=== PATIENT | male | born 1980 ===

== ENCOUNTER 2016-06-09 12:43 | Emergency (ER) | payer OTHER ==
--- NOTE | 2016-06-09 13:13 | ED ---
Lower Extremity - HPI Summary HPI Summary: Patient felt a pop sensation and limited ability to walk on the L mid, medial calf while lifting weights. Denies foot/ankle pain, trauma. No allev factors. 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 - Female Friend Onset of Pain: Immediate Severity Initially: Mild Severity Currently: None Pain Intensity: 9 - Allergies/Home Medications Allergies/Adverse Reactions: Allergies Allergy/AdvReac Type Severity Reaction Status Date / Time No Known Allergies Allergy Verified 06/09/16 12:52 PMH/Surg Hx/FS Hx/Imm Hx Previously Healthy: Yes Infectious Disease History: No Infectious Disease History: Denies: Traveled Outside the [place] in Last 30 Days - Social History Alcohol Use: None Substance Use Type: Reports: None Smoking Status (MU): Never Smoked Tobacco Review of Systems All Other Systems Reviewed And Are Negative: Yes Physical Exam Triage Information Reviewed: Yes Vital Signs On Initial Exam: Initial Vitals Temp Pulse Resp BP Pulse Ox 98.5 F 83 20 133/78 99 06/09/16 12:44 06/09/16 12:44 06/09/16 12:44 06/09/16 12:44 06/09/16 12:44 Vital Signs Reviewed: Yes Appearance: Positive: Well-Appearing, No Pain Distress, Well-Nourished Skin: Positive: Warm Respiratory/Lung Sounds: Positive: Clear to Auscultation, Breath Sounds Present Cardiovascular: Positive: Normal, RRR, Pulses are Symmetrical in both Upper and Lower Extremities Abdomen Description: Positive: Nontender, No Organomegaly, Soft Musculoskeletal: Positive: Normal, Strength/ROM Intact Neurological: Positive: Normal, Sensory/Motor Intact, Alert, Oriented to Person Place, Time, CN Intact II-III, Reflexes Intact, NV Bundle Intact Distally, Abnormal Gait - Cecilia Coma Scale Coma Scale Total: 15 Diagnostics - Vital Signs Vital Signs Temp Pulse Resp BP Pulse Ox 06/09/16 12:44 98.5 F 83 20 133/78 99 - Laboratory Lab Statement: Any lab studies that have been ordered have been reviewed, and results considered in the medical decision making process. Lower Extremity Course/Dx - Diagnoses Differential Diagnosis/HQI/PQRI: Positive: Other - Primary concern for calf strain. No ultrasound evidence of achilles rupture. xray for occult fx. DC home with crutch for comfort. VIN Mendez qualifier. Provider Diagnoses: Strain of calf muscle Discharge - Discharge Plan Condition: Stable Disposition: HOME Patient Education Materials: Muscle Strain (ED)
--- NOTE | 2016-06-09 13:31 | RAD ---
INDICATION: Left leg injury COMPARISON: None TECHNIQUE: AP and lateral views were obtained. FINDINGS: The bony structures, joint spaces, and soft tissues are normal for age. IMPRESSION: NEGATIVE EXAMINATION
[2016-06-09 13:35] VITALS: BP 130/72
== END 2016-06-09 13:32 | disposition home or self-care (01) ==
LOC: ED 12:43
DX: S86.912A Strain of unspecified muscle(s) and tendon(s) at lower leg level, left leg, initial encounter (principal); X58.XXXA Exposure to other specified factors, initial encounter; Y93.9 Activity, unspecified; Y92.9 Unspecified place or not applicable
CPT/HCPCS: 99285

== ENCOUNTER 2017-06-12 17:51 | Inpatient (IN) | payer OTHER ==
--- NOTE | 2017-06-12 18:36 | ED ---
Psychiatric Complaint - HPI Summary HPI Summary: 36 male presents to ED with complaints of having increasing paranoia, suicidal thoughts, depression, and denis over the past few weeks. Patient has a history of denis and suicidal attempt (climbed the top of daisy, was going to jump off but didn't) and hospitalization 1 year ago for approximately 6 months. Has been following up with psychiatrist, Dr Ramirez at [facility] in [facility]. The past month has been taking and trying different medications , currently depakote and ambien without relief. Patient states he has had decreased appetite and insomnia for the past 4 months, worsening over the past few weeks. Had strong thoughts of suicide 3 days ago, when he was thinking to use knives and stab his heart however he didn't know where to put it. Went to his friends house, who is currently with him, and has been staying with her for the past 3 days. Patient states he has been having extravagant thoughts, paranoia and denis. States he is unable to get his brain under control. Very supportive family, per patient. Patient understands the extent of his illness and wants help before it is uncontrollable. No homicidal thoughts. Admits to hallucinating. No alcohol or drug use. Also spoke with patient's psychiatrist who is requesting admission as patient does not appear stable and he is worried for patient's well being, medications do not seem to be helping. Not currently suicidal at this time. No other PMHx. - History Of Current Complaint Chief Complaint: EDMentalHealth Time Seen by Provider: 06/12/17 18:17 Hx Obtained From: Patient, Family/C Unix Developer - friend Onset/Duration: Gradual Onset, Lasting Weeks, Still Present, Worse Since Timing: Constant Severity Initially: Moderate Severity Currently: Severe Character: Manic, Depressed Aggravating Factor(s): Recent Stress Alleviating Factor(s): Nothing Associated Signs And Symptoms: Positive: Hallucinating, Paranoid Behavior, Sleep Disturbance, Appetite Change Related History: Positive For: Prior Psychiatric Issues Has Suicidal: Reports: Thoughts, With A Plan, Has Prior Attempt(s) - almost attempt with walking to edge of daisy however returned Has Homicidal: Denies: Thoughts, With A Plan - Risk Factor(s) Completed Suicide Risk Factors: Male, White Estonian, Past Suicide Attempt - Allergies/Home Medications Allergies/Adverse Reactions: Allergies Allergy/AdvReac Type Severity Reaction Status Date / Time No Known Allergies Allergy Verified 06/09/16 12:52 Home Medications: Home Medications Divalproex ER TAB(*) [Depakote ER TAB(*)] 1,000 mg PO BEDTIME 06/12/17 [History Confirmed 06/12/17] Zolpidem TAB* [Ambien TAB*] 10 mg PO BEDTIME PRN 06/12/17 [History Confirmed ] PMH/Surg Hx/FS Hx/Imm Hx Endocrine/Hematology History: Denies: Hx Anticoagulant Therapy, Hx Diabetes Cardiovascular History: Denies: Hx Hypertension Respiratory History: Denies: Hx Asthma - Surgical History Surgery Procedure, Year, and Place: n/a - Immunization History Immunizations Up to Date: Yes Infectious Disease History: No Infectious Disease History: Denies: Traveled Outside the US in Last 30 Days - Family History Known Family History: Positive: None - Social History Alcohol Use: None Substance Use Type: Reports: None Smoking Status (MU): Never Smoked Tobacco Review of Systems Constitutional: Negative Cardiovascular: Negative Respiratory: Negative Neurological: Negative Positive: Depressed, Other - paranoid, manic, suicidal All Other Systems Reviewed And Are Negative: Yes Physical Exam Triage Information Reviewed: Yes Vital Signs On Initial Exam: Initial Vitals Temp Pulse Resp BP Pulse Ox 98.7 F 54 16 118/74 99 06/12/17 17:57 06/12/17 17:57 06/12/17 17:57 06/12/17 17:57 06/12/17 17:57 Vital Signs Reviewed: Yes Appearance: Positive: Well-Appearing - flat affect, No Pain Distress, Well- Nourished Skin: Positive: Warm, Skin Color Reflects Adequate Perfusion, Dry. Negative: Cold, Numb, Cyanosis @, Pale, Erythema @ Head/Face: Positive: Normal Head/Face Inspection Eyes: Positive: Conjunctiva Clear ENT: Positive: Pharynx normal Neck: Positive: Supple, Nontender Respiratory/Lung Sounds: Positive: Clear to Auscultation, Breath Sounds Present. Negative: Rales, Rhonchi, Wheezes Cardiovascular: Positive: Normal, RRR, Pulses are Symmetrical in both Upper and Lower Extremities. Negative: Murmur, Rub Abdomen Description: Positive: Nontender, Soft Bowel Sounds: Positive: Present Musculoskeletal: Positive: Normal, Strength/ROM Intact Neurological: Positive: Normal, Sensory/Motor Intact, Alert, Oriented to Person Place, Time, CN Intact II-III Psychiatric: Positive: Depressed - flat affect - Turney Coma Scale Best Eye Response: 4 - Spontaneous Best Motor Response: 6 - Obeys Commands Best Verbal Response: 5 - Oriented Coma Scale Total: 15 Diagnostics - Vital Signs Vital Signs Temp Pulse Resp BP Pulse Ox 06/12/17 17:57 98.7 F 54 16 118/74 99 - Laboratory Result Diagrams: 06/12/17 18:27 06/12/17 18:27 Lab Statement: Any lab studies that have been ordered have been reviewed, and results considered in the medical decision making process. Course/Dx - Course Course Of Treatment: labs and urinalysis obtained, all unremarkable. medically cleared. no other concerning signs or symptoms. appears by history, recent symptoms, suicidal thoughts, strongly encourage admission and would not accept to sign off on a discharge. has failed out patient therapy. encouraged admission by patient's outpatient psychiatrist whom I also spoke with Dr Ramirez as well. Normal vitals. No medical concerns. Patient will be signed out to Dr Andujar at shift change pending psych eval and disposition. - Differential Dx/Clinical Impression Differential Diagnosis/HQI/PQRI: Positive: Acute Psychosis, Anxiety, Bipolar Disorder, Depression, Suicidal Ideation Provider Diagnosis: Mental health problem, Suicidal ideation, Depression, Paranoia (psychosis) - Physician Notifications Discussed Care Of Patient With: THEODORE, Dr Andujar at shift change pending dispo Patient Is Medically Stable For: Psych Evaluation Discharge - Discharge Plan Condition: Stable Disposition: OTHER Discharge Disposition Comment: signed out to Dr Andujar at shift change pending MHE and disposition Referrals: [facility] - Giuseppe AREVALO [Primary Care Provider] -
[2017-06-12 18:53] LABS: ABS Basophils 0 10^3/ul (0-0.2); ABS Eosinophils 0 10^3/ul (0-0.6); ABS Monocytes 0.5 10^3/ul (0-0.8); ABS Neutrophils 3.1 10^3/ul (1.5-7.7); ABS Nucleated RBC 0 10^3/ul; Eosinophil % 0.3 % (0-6); Hematocrit 41 % (42-52); Hemoglobin 14.1 g/dl (14.0-18.0); Lymphocyte % 35.7 % (25-47); Mean Corpuscular HGB Conc 34 g/dl (31-36); Mean Corpuscular Hemoglobin 30 pg (27-31); Mean Corpuscular Volume 88 fL (80-94); Mean Platelet Volume 8 um3 (7.4-10.4); Nucleated Red Blood Cells % 0.1; Platelet Count 239 10^3/ul (150-450); Red Blood Count 4.69 10^6/ul (4.0-5.4); Red Cell Distribution Width 13 % (10.5-15); White Blood Count 5.7 10^3/ul (3.5-10.8)
[2017-06-12 19:17] LABS: EGFR Non-African American 88.1 (>60)
[2017-06-12 19:24] LABS: Urine Appearance Cloudy; Urine Blood Negative (Negative); Urine Color Amber; Urine Ketones Negative (Negative); Urine Protein Negative (Negative); Urine Specific Gravity 1.021 (1.010-1.030); Urine Urobilinogen Negative (Negative)
--- NOTE | 2017-06-13 02:23 | UC ---
Oanh Medina Julia, scribed for Angel Andujar MD on 06/13/17 at 0153 . - Progress Note Progress Note: This patient was signed out from Sarah EMMANUEL at shift change. - Consult/PCP Time Called: 18:00 Course/Dx - Diagnoses Provider Diagnoses: Suicidal ideation, Depression The documentation as recorded by the Oanh tabares Julia accurately reflects the service I personally performed and the decisions made by Con machuca Kirk, MD.
[2017-06-13] MEDS ORDERED: Divalproex ER TAB(*) 500 MG ONE (03:14)
[2017-06-13] MEDS ORDERED: Acetaminophen TAB* 325 MG PO PRN (03:19)
[2017-06-13] MEDS ORDERED: Al Hydrox/Mg Hydrox/Simet LIQ* 30 ML UDC PO PRN (03:19)
[2017-06-13] MEDS ORDERED: Divalproex ER TAB(*) 500 MG PO SCH (04:00)
--- NOTE | 2017-06-13 11:12 | PN ---
MHU: Group Therapy Note - Service Type Service Type: [id number] Group Psychotherapy - Cognitive Behavioral Group Therapy ( CBT):Patient was attentive and participatory in CBT programming this morning, and remained in good behavioral control. Patient expressed positive insights regarding relevant treatment interventions and goals.
[2017-06-13] MEDS: Psyllium PAK PO SCH (16:00)
[2017-06-13] MEDS: Vitamin THERAPEUTIC TAB PO SCH (16:01)
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
[2017-06-13] MEDS: LORazepam TAB(*) 0.5 MG PO PRN (20:09)
[2017-06-13] MEDS: QUEtiapine TAB* 25 MG PO SCH (20:09)
[2017-06-13] MEDS: Divalproex ER TAB(*) 500 MG PO SCH (20:09)
[2017-06-13] MEDS ORDERED: Zolpidem TAB* 10 MG PO SCH (21:00)
[2017-06-14] MEDS ORDERED: Vitamin THERAPEUTIC TAB ONE (07:41)
[2017-06-14] MEDS: Vitamin THERAPEUTIC TAB PO SCH (07:41)
[2017-06-14] MEDS: Psyllium PAK PO SCH (07:41)
--- NOTE | 2017-06-14 13:29 | PN ---
MHU: Group Therapy Note - Service Type Service Type: [id number] Group Psychotherapy - Cognitive Behavioral Group Therapy ( CBT):Patient was attentive and participatory in CBT programming this morning, and remained in good behavioral control. Patient expressed positive insights regarding relevant treatment interventions and goals.
--- NOTE | 2017-06-14 13:47 | PN ---
Subjective - Subjective Service Type: [id number] Hosp care 15 min low complexity Subjective: Patient reports feeling lethargic today and that he is "struggling to keep my eyes open." He reports sleeping deeply last night, which is a big improvement. He endorses mild persistent anxiety but denies panic. He continues to endorses poor concentration and depressed mood. He states he has good support in 4-5 close friends, some of whom have been visiting him. He is notified of his lab results. We discuss estimated length of stay and patient is encouraged to notify account underwriter and/or staff when he is feeling close to baseline. Objective - Appearance Appearance: Well Developed/Nourished Dysmorphic Features: Yes Hygiene: Normal Grooming: Fairly Well Kept - Behavior Psychomotor Activities: Abnormal-Decreased - mild psychomotor retardation Exhibits Abnormal Movement: Yes - Attitude and Relatedness Attitude and Relatedness: Cooperative Eye Contact: Good - Speech Quality: Unpressured Latencies: Normal Quantity: Appropriate - Mood Patient's Decription of Mood: "lethargic" - Affect Observed Affect: Depressed Affect Consistent with: Dysphoria - Thought Process Patient's Thought Process: Coherent, Goal Directed Thought Content: Yes Passive Wish, No Suicidal Planning, No Homicidal Ideation, No Paranoid Ideation - Sensorium Experiencing Hallucinations: No, Sensorium is Clear Type of Hallucinations: Visual: No, Auditory: No, Command: No - Level of Consciousness Level of Consciousness: Alert Orientation: Yes Intact, Yes Orientated to Time, Yes Orientated to Place, Yes Orientated to Person - Impulse Control Impulse Control: Intact - in this setting - Insight and Judgement Insight and Judgement: Fair - Group Participation Particating in Group Activities: Yes - Medication Management Medication Management Adherence: Yes Assessment - Assessment Merits Inpatient Hospitalization: For Immediate Safety, For Stabilization, To Initiate Treatment, Consolidate Improvements, Pending Safe DC Plan Inpatient DSM-V Dx: F39 Clinical Impression: First psychiatric hospitalization for 36yo Slovak male. He has been seeing an outpatient psychiatrist and therapist since november of 2016. Patient endorses manic episode prior to current depressed state. He was admitted due to suicidal ideation, anxiety and poor sleep. He merits hospitalization for immediate safety and stabilization. Plan - Plan Treatment Plan: Name: YULI TARIQ Birthdate: 1980 [id number] Continue acute intensive psychiatric treatment. decrease to q30min and allow staff pass. Continued Medication Management: Start Medication Medications: Current Medications Acetaminophen (Tylenol Tab*) 650 mg PO Q4H PRN PRN Reason: PAIN or TEMP > 101 F Al Hydrox/Mg Hydrox/Simethicone (Maalox Plus*) 30 ml PO Q4H PRN PRN Reason: INDIGESTION Divalproex Sodium (Depakote Er Tab(*)) 1,000 mg PO 2100 [facility] Last Admin: 06/13/17 20:09 Dose: 1,000 mg Lorazepam (Ativan Tab(*)) 0.5 mg PO Q4H PRN PRN Reason: ANXIETY Last Admin: 06/13/17 20:09 Dose: 0.5 mg Multivitamins (Theragran Tab*) 1 tab PO DAILY [facility] Last Admin: 06/14/17 07:41 Dose: 1 tab Psyllium Hydrophilic Mucilloid (Metamucil Lionel*) 1 pkt PO DAILY [facility] Last Admin: 06/14/17 07:41 Dose: 1 pkt Quetiapine Fumarate (Seroquel Tab*) 50 mg PO BEDTIME [facility] Last Admin: 06/13/17 20:09 Dose: 50 mg - Discharge Plan Discharge Plan: Outpatient Follow Up [facility]
[2017-06-14] MEDS: LORazepam TAB(*) 0.5 MG PO PRN (16:06)
[2017-06-14] MEDS: Divalproex ER TAB(*) 500 MG PO SCH (21:26)
[2017-06-14] MEDS: QUEtiapine TAB* 25 MG PO SCH (21:27)
[2017-06-15] MEDS ORDERED: Vitamin THERAPEUTIC TAB ONE (08:05)
[2017-06-15] MEDS: Psyllium PAK PO SCH (08:27)
[2017-06-15] MEDS: Vitamin THERAPEUTIC TAB PO SCH (08:56)
--- NOTE | 2017-06-15 14:04 | PN ---
MHU: Group Therapy Note - Service Type Service Type: [id number] Group Psychotherapy - Cognitive Behavioral Group Therapy ( CBT):Patient was attentive and participatory in CBT programming this morning, and remained in good behavioral control. Patient expressed positive insights regarding relevant treatment interventions and goals.
--- NOTE | 2017-06-15 14:05 | PN ---
MHU: Group Therapy Note - Service Type Service Type: [id number] Group Psychotherapy - Cognitive Behavioral Group Therapy ( CBT):Patient was attentive and participatory in CBT programming this morning, and remained in good behavioral control. Patient expressed positive insights regarding relevant treatment interventions and goals.
--- NOTE | 2017-06-15 14:28 | PN ---
<Gris Manjarrez - Last Filed: 06/15/17 14:22> Subjective - Subjective Service Type: 83213 Hosp care 25 min moderate complexity Subjective: Yuli surprised that he slept 7 hours last night and did not know he was frequently checked on during the night. Reports his mood as mellow and that he does not feel mentally "sharp', expressing concern over this; presented this as part of his recovery process and side effect of medication. Discussed addition of aripiprazole to medications which he is agreeable to. DOffered a different sleep medication by did not want Quetiapine stopped at bedtime yet since it has been helping with his sleep.He is agreeable to staying until Monday for stabilization. Objective - Appearance Appearance: Healthy Appearing Dysmorphic Features: No Hygiene: Normal Grooming: Well Kept - Behavior Psychomotor Activities: Normal Exhibits Abnormal Movement: No - Attitude and Relatedness Attitude and Relatedness: Cooperative Eye Contact: Good - Speech Quality: Unpressured Latencies: Normal Quantity: Appropriate - Mood Patient's Decription of Mood: "mellow" - Affect Observed Affect: Fair Affect Consistent with: Dysphoria - Thought Process Patient's Thought Process: Coherent, Goal Directed Thought Content: No Passive Wish, No Suicidal Planning, No Homicidal Ideation, No Paranoid Ideation - Sensorium Experiencing Hallucinations: No, Sensorium is Clear Type of Hallucinations: Visual: No, Auditory: No, Command: No - Level of Consciousness Orientation: Yes Intact, Yes Orientated to Time, Yes Orientated to Place, Yes Orientated to Person - Impulse Control Impulse Control: Intact - Insight and Judgement Insight and Judgement: Fair - Group Participation Particating in Group Activities: Yes - Medication Management Medication Management Adherence: Yes Assessment - Assessment Merits Inpatient Hospitalization: For Stabilization, Consolidate Improvements, For Discharge Planning Inpatient DSM-V Dx: F39 Clinical Impression: First psychiatric hospitalization for 36yo Mongolian male. He has been seeing an outpatient psychiatrist and therapist since november of 2016. Patient endorses manic episode prior to current depressed state. He was admitted due to suicidal ideation, anxiety and poor sleep. He merits hospitalization for stabilization, consolidation of improvements and medication trial. Plan Plan - Plan Treatment Plan: Name: YULI CRUM Birthdate: 1980 [id number] Medications: Current Medications Acetaminophen (Tylenol Tab*) 650 mg PO Q4H PRN PRN Reason: PAIN or TEMP > 101 F Al Hydrox/Mg Hydrox/Simethicone (Maalox Plus*) 30 ml PO Q4H PRN PRN Reason: INDIGESTION Aripiprazole (Abilify Tab*) 2 mg PO BEDTIME TIM Divalproex Sodium (Depakote Er Tab(*)) 1,000 mg PO 2100 [facility] Last Admin: 06/14/17 21:26 Dose: 1,000 mg Lorazepam (Ativan Tab(*)) 0.5 mg PO Q4H PRN PRN Reason: ANXIETY Last Admin: 06/14/17 16:06 Dose: 0.5 mg Multivitamins (Theragran Tab*) 1 tab PO DAILY [facility] Last Admin: 06/15/17 08:56 Dose: Not Given Psyllium Hydrophilic Mucilloid (Metamucil Lionel*) 1 pkt PO DAILY [facility] Last Admin: 06/15/17 08:27 Dose: 1 pkt Quetiapine Fumarate (Seroquel Tab*) 50 mg PO BEDTIME [facility] Last Admin: 06/14/17 21:27 Dose: 50 mg <Daksha Lao - Last Filed: 06/15/17 16:17> Subjective - Subjective Subjective: above note reviewed and discussed with student. lord Assessment - Assessment Merits Inpatient Hospitalization: For Immediate Safety Plan - Plan Treatment Plan: Name: YULI CRUM Birthdate: 1980 [id number] Continue acute intensive psychiatric treatment. add low dose abilify for depression and anxiety. patient will continue on dual antipsychotic treatment during hospitalization to promote sleep. will likely dc quetiapine prior to discharge. Continued Medication Management: Start Medication Medications: Current Medications Acetaminophen (Tylenol Tab*) 650 mg PO Q4H PRN PRN Reason: PAIN or TEMP > 101 F Al Hydrox/Mg Hydrox/Simethicone (Maalox Plus*) 30 ml PO Q4H PRN PRN Reason: INDIGESTION Aripiprazole (Abilify Tab*) 2 mg PO BEDTIME TIM Divalproex Sodium (Depakote Er Tab(*)) 1,000 mg PO 2100 [facility] Last Admin: 06/14/17 21:26 Dose: 1,000 mg Lorazepam (Ativan Tab(*)) 0.5 mg PO Q4H PRN PRN Reason: ANXIETY Last Admin: 06/14/17 16:06 Dose: 0.5 mg Multivitamins (Theragran Tab*) 1 tab PO DAILY [facility] Last Admin: 06/15/17 08:56 Dose: Not Given Psyllium Hydrophilic Mucilloid (Metamucil Lionel*) 1 pkt PO DAILY [facility] Last Admin: 06/15/17 08:27 Dose: 1 pkt Quetiapine Fumarate (Seroquel Tab*) 50 mg PO BEDTIME [facility] Last Admin: 06/14/17 21:27 Dose: 50 mg - Discharge Plan Discharge Plan: Outpatient Follow [facility]
--- NOTE | 2017-06-15 16:24 | PN ---
MHU: Group Therapy Note - Service Type Service Type: [id number] Group Psychotherapy - Medication Education Group: Patient attended group and presented with flat affect that did not vary with discussion. Although responsive to direct prompts to respond to questions, patient did not engage in spontaneous conversation.
[2017-06-15] MEDS ORDERED: ARIPiprazole TAB* 2 MG PO SCH (21:00)
[2017-06-15] MEDS: Divalproex ER TAB(*) 500 MG PO SCH (21:58)
[2017-06-15] MEDS: QUEtiapine TAB* 25 MG PO SCH (21:59)
[2017-06-16] MEDS: LORazepam TAB(*) 0.5 MG PO PRN ×2 (04:48→21:12)
[2017-06-16] MEDS ORDERED: Vitamin THERAPEUTIC TAB ONE (07:44)
[2017-06-16] MEDS: Psyllium PAK PO SCH (08:19)
[2017-06-16] MEDS: Vitamin THERAPEUTIC TAB PO SCH (08:19)
--- NOTE | 2017-06-16 11:15 | PN ---
<Gris Manjarrez - Last Filed: 06/16/17 11:08> Subjective - Subjective Service Type: 02253 Hosp care 15 min low complexity Subjective: Yuli found in bed attempting to rest. He is distressed that he had little sleep last night, he reports that he was relaxing in bed, not asleep. He is agreeable to increasing quetiapine to 100mg at hs, and changing aripiprazole dose to daytime. Reports he feels "brain fog", expresses some insight that he needs time to heal. Daytime activities encouraged. Objective - Appearance Appearance: Thin Framed Dysmorphic Features: No Hygiene: Normal Grooming: Fairly Well Kept - Behavior Psychomotor Activities: Abnormal-Decreased - slight decrease Exhibits Abnormal Movement: Yes - Attitude and Relatedness Attitude and Relatedness: Appropriate Eye Contact: Good - Speech Quality: Unpressured Latencies: Normal Quantity: Appropriate - Mood Patient's Decription of Mood: "tired" - Affect Observed Affect: Tense Affect Consistent with: Dysphoria - Thought Process Patient's Thought Process: Coherent, Goal Directed Thought Content: No Passive Wish, No Suicidal Planning, No Homicidal Ideation, No Paranoid Ideation - Sensorium Experiencing Hallucinations: No, Sensorium is Clear Type of Hallucinations: Visual: No, Auditory: No, Command: No - Level of Consciousness Level of Consciousness: Alert Orientation: Yes Intact, Yes Orientated to Time, Yes Orientated to Place, Yes Orientated to Person - Impulse Control Impulse Control: Intact - Insight and Judgement Insight and Judgement: Good - Group Participation Particating in Group Activities: No Group Participation Comments: States he is tired, daytime activities encouraged. - Medication Management Medication Management Adherence: Yes Assessment - Assessment Merits Inpatient Hospitalization: For Stabilization, Consolidate Improvements, For Discharge Planning Inpatient DSM-V Dx: F39 Clinical Impression: First psychiatric hospitalization for 36yo Yi male. He has been seeing an outpatient psychiatrist and therapist since november of 2016. Patient endorses manic episode prior to current depressed state. He was admitted due to suicidal ideation, anxiety and poor sleep. Quetiapine increased to 100mg hs and aripiprazole changed to daytime administration. He merits hospitalization for stabilization, consolidation of improvements and medication trial. Plan Plan - Plan Treatment Plan: Name: YULI CRUM Birthdate: 1980 [id number] Medications: Current Medications Acetaminophen (Tylenol Tab*) 650 mg PO Q4H PRN PRN Reason: PAIN or TEMP > 101 F Al Hydrox/Mg Hydrox/Simethicone (Maalox Plus*) 30 ml PO Q4H PRN PRN Reason: INDIGESTION Aripiprazole (Abilify Tab*) 2 mg PO DAILY [facility] Divalproex Sodium (Depakote Er Tab(*)) 1,000 mg PO 2100 [facility] Last Admin: 06/15/17 21:58 Dose: 1,000 mg Lorazepam (Ativan Tab(*)) 0.5 mg PO Q4H PRN PRN Reason: ANXIETY Last Admin: 06/16/17 04:48 Dose: 0.5 mg Multivitamins (Theragran Tab*) 1 tab PO DAILY [facility] Last Admin: 06/16/17 08:19 Dose: 1 tab Psyllium Hydrophilic Mucilloid (Metamucil Lionel*) 1 pkt PO DAILY [facility] Last Admin: 06/16/17 08:19 Dose: 1 pkt Quetiapine Fumarate (Seroquel Tab*) 100 mg PO BEDTIME [facility] <Daksha Lao - Last Filed: 06/19/17 10:08> Subjective - Subjective Service Type: 31702 Hosp care 25 min moderate complexity Subjective: above note reviewed and discussed with student. risa. Received vm from Dominga Brian in [place] ([phone]) asking for update of patient status. Patient reports this is cousin and gives permission for collaboration, DARWIN signed. Electrical Test Technician left vm with Dominga. Plan - Plan Treatment Plan: Name: YULI CRUM Birthdate: 1980 [id number] continue acute intensive psychiatric treatment. continue q30 min observation and allow staff pass. Continued Medication Management: Start Medication Medications: Current Medications Acetaminophen (Tylenol Tab*) 650 mg PO Q4H PRN PRN Reason: PAIN or TEMP > 101 F Last Admin: 06/17/17 18:59 Dose: 650 mg Al Hydrox/Mg Hydrox/Simethicone (Maalox Plus*) 30 ml PO Q4H PRN PRN Reason: INDIGESTION Aripiprazole (Abilify Tab*) 2 mg PO DAILY [facility] Last Admin: 06/19/17 08:30 Dose: 2 mg Divalproex Sodium (Depakote Er Tab(*)) 1,000 mg PO 2100 [facility] Last Admin: 06/18/17 20:05 Dose: 1,000 mg Lorazepam (Ativan Tab(*)) 0.5 mg PO Q4H PRN PRN Reason: ANXIETY Last Admin: 06/18/17 21:32 Dose: 0.5 mg Multivitamins (Theragran Tab*) 1 tab PO DAILY [facility] Last Admin: 06/19/17 08:30 Dose: 1 tab Psyllium Hydrophilic Mucilloid (Metamucil Lionel*) 1 pkt PO DAILY [facility] Last Admin: 06/19/17 08:30 Dose: 1 pkt Quetiapine Fumarate (Seroquel Tab*) 100 mg PO BEDTIME [facility] Last Admin: 06/18/17 20:05 Dose: 100 mg - Discharge Plan Discharge Plan: Outpatient Follow [facility]
[2017-06-16] MEDS: ARIPiprazole TAB* 2 MG PO SCH (11:55)
[2017-06-16] MEDS: Divalproex ER TAB(*) 500 MG PO SCH (20:42)
[2017-06-16] MEDS: QUEtiapine TAB* 100 MG PO SCH (20:42)
[2017-06-17] MEDS: ARIPiprazole TAB* 2 MG PO SCH (08:33)
[2017-06-17] MEDS: Psyllium PAK PO SCH (08:34)
[2017-06-17] MEDS: Vitamin THERAPEUTIC TAB PO SCH ×2 (10:01→10:02)
--- NOTE | 2017-06-17 14:15 | PN ---
Subjective - Subjective Date of Service: 06/17/17 Service Type: 21332 Hosp care 15 min low complexity Subjective: Yuli reports of feeling cloudy and slow in mind and wanting to know for how long he has to take all these meds. Advised to talk to his provider. Otherwise denies SI, HI or psychosis. Objective - Appearance Appearance: Healthy Appearing Dysmorphic Features: No Hygiene: Normal Grooming: Fairly Well Kept - Behavior Psychomotor Activities: Normal Exhibits Abnormal Movement: No - Attitude and Relatedness Attitude and Relatedness: Cooperative Eye Contact: Good - Speech Quality: Unpressured Latencies: Normal Quantity: Appropriate - Mood Patient's Decription of Mood: "Okay" - Affect Observed Affect: Depressed Affect Consistent with: Dysphoria - Thought Process Patient's Thought Process: Coherent, Goal Directed Thought Content: No Passive Wish, No Suicidal Planning, No Homicidal Ideation, No Paranoid Ideation - Sensorium Experiencing Hallucinations: No, Sensorium is Clear Type of Hallucinations: Visual: No, Auditory: No, Command: No - Level of Consciousness Level of Consciousness: Alert Orientation: Yes Intact, Yes Orientated to Time, Yes Orientated to Place, Yes Orientated to Person - Impulse Control Impulse Control: Intact - Insight and Judgement Insight and Judgement: Poor - Group Participation Particating in Group Activities: Yes - Medication Management Medication Management Adherence: Yes Assessment - Assessment Merits Inpatient Hospitalization: For Stabilization, Pending Safe DC Plan Inpatient DSM-V Dx: F39 Clinical Impression: Experiencing moderate side effects from meds but taking them. Plan - Plan Treatment Plan: Name: YULI CRUM Birthdate: 1980 [id number] Continued Medication Management: Continue Outpt Medication Medications: Current Medications Acetaminophen (Tylenol Tab*) 650 mg PO Q4H PRN PRN Reason: PAIN or TEMP > 101 F Al Hydrox/Mg Hydrox/Simethicone (Maalox Plus*) 30 ml PO Q4H PRN PRN Reason: INDIGESTION Aripiprazole (Abilify Tab*) 2 mg PO DAILY [facility] Last Admin: 06/17/17 08:33 Dose: 2 mg Divalproex Sodium (Depakote Er Tab(*)) 1,000 mg PO 2100 [facility] Last Admin: 06/16/17 20:42 Dose: 1,000 mg Lorazepam (Ativan Tab(*)) 0.5 mg PO Q4H PRN PRN Reason: ANXIETY Last Admin: 06/16/17 21:12 Dose: 0.5 mg Multivitamins (Theragran Tab*) 1 tab PO DAILY [facility] Last Admin: 06/17/17 10:01 Dose: 1 tab Psyllium Hydrophilic Mucilloid (Metamucil Lionel*) 1 pkt PO DAILY [facility] Last Admin: 06/17/17 08:34 Dose: 1 pkt Quetiapine Fumarate (Seroquel Tab*) 100 mg PO BEDTIME [facility] Last Admin: 06/16/17 20:42 Dose: 100 mg - Discharge Plan Discharge Plan: Outpatient Follow Up Outpatient Program: [facility]
[2017-06-17] MEDS ORDERED: Acetaminophen TAB* 325 MG ONE (18:59)
[2017-06-17] MEDS: QUEtiapine TAB* 100 MG PO SCH (20:10)
[2017-06-17] MEDS: Divalproex ER TAB(*) 500 MG PO SCH (20:10)
[2017-06-17] MEDS: LORazepam TAB(*) 0.5 MG PO PRN (21:27)
[2017-06-18] MEDS: Psyllium PAK PO SCH (08:28)
[2017-06-18] MEDS: Vitamin THERAPEUTIC TAB PO SCH (08:28)
[2017-06-18] MEDS: ARIPiprazole TAB* 2 MG PO SCH (08:28)
[2017-06-18] MEDS: QUEtiapine TAB* 100 MG PO SCH (20:05)
[2017-06-18] MEDS: Divalproex ER TAB(*) 500 MG PO SCH (20:05)
[2017-06-18] MEDS: LORazepam TAB(*) 0.5 MG PO PRN (21:32)
[2017-06-19] MEDS: ARIPiprazole TAB* 2 MG PO SCH (08:30)
[2017-06-19] MEDS: Psyllium PAK PO SCH (08:30)
[2017-06-19] MEDS: Vitamin THERAPEUTIC TAB PO SCH (08:30)
[2017-06-19] MEDS ORDERED: ARIPiprazole TAB* 5 MG PO ONE (12:02)
[2017-06-19] MEDS ORDERED: QUEtiapine TAB* 100 MG PO PRN (12:03)
[2017-06-19] MEDS ORDERED: Zolpidem TAB* 10 MG PO PRN (12:07)
--- NOTE | 2017-06-19 15:53 | PN ---
Subjective - Subjective Service Type: 09315 Hosp care 25 min moderate complexity Subjective: Patient reports feeling "better" and more "calm." He is most concerned about the amount of sleep/quality of sleep he is getting. He reports fear of being discharged then needing to return. He is receptive to psychoeducation about mood and sleep disturbances. He denies racing thoughts, anxiety or SI. He states he would like to sleep here one more night and consider discharge tomorrow. Technical Project Lead phoned outpatient psychiatrist, Dr Ramirez and updated on patient's status. Objective - Appearance Appearance: Thin Framed Dysmorphic Features: No Hygiene: Normal Grooming: Well Kept - Behavior Psychomotor Activities: Normal Exhibits Abnormal Movement: No - Attitude and Relatedness Attitude and Relatedness: Cooperative Eye Contact: Good - Speech Quality: Unpressured Latencies: Normal Quantity: Appropriate - Mood Patient's Decription of Mood: "better" - Affect Observed Affect: Good Affect Consistent with: Euthymia - Thought Process Patient's Thought Process: Coherent, Goal Directed Thought Content: No Passive Wish, No Suicidal Planning, No Homicidal Ideation, No Paranoid Ideation - Sensorium Experiencing Hallucinations: No, Sensorium is Clear Type of Hallucinations: Visual: No, Auditory: No, Command: No - Level of Consciousness Level of Consciousness: Alert Orientation: Yes Intact, Yes Orientated to Time, Yes Orientated to Place, Yes Orientated to Person - Impulse Control Impulse Control: Intact - Insight and Judgement Insight and Judgement: Good - Group Participation Particating in Group Activities: Yes - Medication Management Medication Management Adherence: Yes Assessment - Assessment Merits Inpatient Hospitalization: For Immediate Safety, For Stabilization, Consolidate Improvements, Pending Safe DC Plan Inpatient DSM-V Dx: F39 Clinical Impression: First psychiatric hospitalization for 36yo [place]raini male. He has been seeing an outpatient psychiatrist and therapist since november of 2016. Patient endorses manic episode prior to current depressed state. He was admitted due to suicidal ideation, anxiety and poor sleep. He merits hospitalization for immediate safety and stabilization. Plan - Plan Treatment Plan: Name: YULI CRUM Birthdate: 1980 [id number] continue acute intensive psychiatric treatment. continue q30 min observation and allow staff pass. tentative discharge on 06/20/17. Continued Medication Management: Start Medication Medications: Current Medications Acetaminophen (Tylenol Tab*) 650 mg PO Q4H PRN PRN Reason: PAIN or TEMP > 101 F Last Admin: 06/17/17 18:59 Dose: 650 mg Al Hydrox/Mg Hydrox/Simethicone (Maalox Plus*) 30 ml PO Q4H PRN PRN Reason: INDIGESTION Aripiprazole (Abilify Tab*) 2 [facility] Last Admin: 06/19/17 08:30 Dose: 2 mg Aripiprazole (Abilify Tab*) 5 mg PO DAILY [facility] Divalproex Sodium (Depakote Er Tab(*)) 1,000 mg PO 2100 [facility] Last Admin: 06/18/17 20:05 Dose: 1,000 mg Lorazepam (Ativan Tab(*)) 0.5 mg PO Q4H PRN PRN Reason: ANXIETY Last Admin: 06/18/17 21:32 Dose: 0.5 mg Multivitamins (Theragran Tab*) 1 tab PO DAILY [facility] Last Admin: 06/19/17 08:30 Dose: 1 tab Psyllium Hydrophilic Mucilloid (Metamucil Lionel*) 1 pkt PO DAILY [facility] Last Admin: 06/19/17 08:30 Dose: 1 pkt Quetiapine Fumarate (Seroquel Tab*) 100 mg PO BEDTIME PRN PRN Reason: insomnia Zolpidem Tartrate (Ambien Tab*) 10 mg PO BEDTIME PRN PRN Reason: INSOMNIA - Discharge Plan Discharge Plan: Outpatient Follow [facility]
[2017-06-19] MEDS: Divalproex ER TAB(*) 500 MG PO SCH (20:10)
[2017-06-19] MEDS: LORazepam TAB(*) 0.5 MG PO PRN (22:06)
--- NOTE | 2017-06-20 03:46 | CONS ---
PSYCHOLOGICAL REPORT: DATE OF CONSULTATION: 06/19/17 REASON FOR REFERRAL: Chalo was referred for personality assessment secondary to concerns regarding possible bipolar I disorder. Rule out is depressive disorder with psychotic features. 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 He describes encroaching difficulties with sleep hygiene, which have continued to worsen over the past few weeks in a rather acute fashion. He describes what sounds to be a sleep erosion kind of phenomenon where he would sleep for 4 to 5 hours a night for some time, but be able to maintain function in a relative fashion. More recently, however, he describes increasing depressive symptomatology including suicidal rumination and feelings of worthlessness and hopelessness and guilt. He is facing stressful circumstances in that although it is wonderful he attained his PhD from [employer], he now faces issues pertaining to his visa lapsing. If he is not able to find gainful employment of some nature in the next 4 to 5 months, he may have to return to his [place]. This would not be Chalo's preference. Chalo has engaged productively in unit programming, typically attending groups and participating and interested in active fashion. He is very forthright and earnest in individual conversation, and is very curious regarding clinical ideas and educational interventions and spontaneously engages in the interview process. He denies having made any suicide attempts, and is disturbed by having had thoughts of harming himself in the recent past. RELEVANT HISTORY: Chalo describes some family vulnerabilities to depression, describing how his father and an uncle both had significant difficulties with sleep with his father experiencing longstanding depression that he appeared to self-medicate with alcohol. Although Chalo describes significant sleep disturbance, he does not describe associated features of a common bipolar process such as delusional or psychotic range disturbances. Instead, he seems to experience encroaching depression as his difficulties with sleep have accumulated. 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 TEST RESULTS: Chalo provides a valid protocol. This assertion is felt to be true even though he has elevated the lie scale to a minimum degree (T = 70). Persons who score in this range on the lie scale who have Chalo's background are often very perfectionistic in nature and they hold themselves higher than expected moral reasoning, and behavioral demands. Chalo elevates the neurotic triad significantly having T scores between 80 and 95 on the first 3 scales. His conversion hysteria scale is his high code-type. He has minimal elevations on the psychoticism scales with the hypomania scale score reflecting a T score of 50. Persons with similar profiles are often described as utilizing repression as their primary emotional coping mechanism, which often leaves them internalizing negative interjects, resulting in endorsement of physical problems. Chalo describes recurring difficulties with headaches as his primary physical symptom. His low elevations on psychoticism scales are felt to reflect not feeling connected to people and feeling somewhat alienated and apart from others. However, his very low score on the social introversion scale is felt to be a positive prognostic indicator as people who score in T = 40 range are described as being very extroverted and who enjoy being around others. IMPRESSION AND RECOMMENDATIONS: Chalo has responded positively to discussion addressing the importance of sleep hygiene, although he continues to endorse poor sleep while here. He has been rather patient, perhaps even to a fault, with the process here and has lengthened his stay to some degree to try to ensure better sleep hygiene. Discussion has addressed concepts consistent with behavioral activation as well as other insight oriented ideas including his future narrative. It is clear he continues to struggle to begin to visualize clear success in what modality that may occur in. He has been compliant with recommended medications and with unit routine and does not impress as a danger to self at this point in time. He shows good insight and programming, and voices expectations of compliance with recommended outpatient treatment once discharged. Chalo impresses as a very good candidate to benefit from continuing insight oriented psychotherapies and will hopefully find some immediate success in vocational aspirations. DIAGNOSTIC IMPRESSION: Major depressive disorder, moderate without psychosis with continuing to rule out of bipolar I process. [id number]/[facility] #: [id number] CHERYL
[2017-06-20 08:07] VITALS: BP 98/60
[2017-06-20] MEDS: Vitamin THERAPEUTIC TAB PO SCH (08:29)
[2017-06-20] MEDS: Psyllium PAK PO SCH (08:30)
[2017-06-20] MEDS: ARIPiprazole TAB* 2 MG PO SCH (08:48)
[2017-06-20] MEDS ORDERED: ARIPiprazole TAB* 5 MG PO SCH (09:00)
--- NOTE | 2017-06-20 11:47 | PN ---
MHU: Group Therapy Note - Service Type Service Type: [id number] Group Psychotherapy - Cognitive Behavioral Group Therapy ( CBT):Patient was attentive and participatory in CBT programming this morning, and remained in good behavioral control. Patient expressed positive insights regarding relevant treatment interventions and goals.
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
== END 2017-06-20 10:55 | disposition home or self-care (01) | DRG 885 ==
LOC: ED 17:51 → BSU 06-13 05:13
PROVIDERS: ADMIT Psychiatry & Neurology Psychiatry; ATTEND Psychiatry & Neurology Psychiatry
DX: F31.9 Bipolar disorder, unspecified (principal); R45.851 Suicidal ideations; F41.9 Anxiety disorder, unspecified; Z62.810 Personal history of physical and sexual abuse in childhood; F39 Unspecified mood [affective] disorder; Z79.899 Other long term (current) drug therapy; Z81.1 Family history of alcohol abuse and dependence; Z81.8 Family history of other mental and behavioral disorders
CPT/HCPCS: 36415; 80053; 80061; 80164; 80307; 80320; 80329; 81003; 82306; 83036; 83735; 84443; 85025; 90853; 96102; 99222; 99231; 99232; 99284; A9270-GY; G0480